=== PATIENT | male | born 1975 | race Caucasian/White ===

== ENCOUNTER → 2017-10-04 09:52 | Outpatient (CLI) | payer MEDICAID | END | disposition home or self-care (01) | LOC: D.CT 09:30 | DX: R10.9 Unspecified abdominal pain (principal); K92.1 Melena; R19.7 Diarrhea, unspecified; K59.00 Constipation, unspecified ==

== ENCOUNTER 2018-01-04 06:15 | Day surgery (SDC) | payer MEDICAID ==
[~2018-01-04] VITALS: Ht 190.5 cm; Wt 102.1 kg
--- NOTE | ~2018-01-04 | OP ---
PATIENT NAME: PHYLLIS ROY MEDICAL RECORD: [id number] :73 LOCATION:D.OPS ADMISSION DATE: SURGEON: FELICITA RDZ MD DATE OF OPERATION: 01/04/2018 PREOPERATIVE DIAGNOSIS: Bilateral inguinal hernias with a portion of the bladder which appears to be contained within the right inguinal hernia sac. POSTOPERATIVE DIAGNOSES: 1. Bilateral inguinal hernias with a portion of the bladder which appears to be contained within the right inguinal hernia sac. 2. Bilateral cord lipomas. SURGEON: Felicita Rdz MD TRIAGE ASSISTANT: None. BLOOD LOSS: Minimal. ANESTHESIA: General. COMPLICATIONS: None. Dr. Medina performed cystoscopy as well as dilation of the urethral stricture and placement of the Ladd catheter prior to the procedure. DESCRIPTION OF PROCEDURE: The abdomen and genitals were sterilely prepped and draped. A transverse incision was accomplished in the right groin. Sharp dissection was carried down through skin and subcutaneous tissue as well as Orin fascia. The external oblique aponeurosis was then cleaned of overlying connective tissue. The external oblique aponeurosis was then incised along the direction of its fibers. I bluntly dissected down through the internal oblique and transversus abdominis muscle layers. A preperitoneal pocket was fashioned bluntly. Once I was satisfied with the preperitoneal pocket, I reduced indirect hernia in its entirety. There was no damage to the bladder during this procedure. I cut 2 ovals out of a polypropylene mesh. I noted the cord lipoma. I excised the vascular pedicle to the cord lipoma and then excised the cord lipoma distal to this. After cutting out 2 ovals of polypropylene mesh they were sutured together one on top of the other with a running #1 Surgidac. The mesh was placed in the preperitoneal space. Once I was satisfied with placement of the mesh, I allowed the internal oblique and transversus abdominis muscle layers to come together and sutured these 2 structures together with multiple interrupted horizontal mattress 0 Surgidacs. The external oblique aponeurosis was closed with running #1 Vicryls. Orin fascia was approximated with interrupted 3-0 Vicryl. The subdermis was approximated with interrupted 3-0 Vicryls. The skin was approximated with a running intracuticular 4-0 Vicryl. Benzoin and Steri-Strips were applied. Attention was then turned to the left side. In the left groin, a transverse incision was accomplished. Sharp dissection was carried down through skin and OPERATIVE REPORT [id number] PHYLLIS ROY subcutaneous tissue as well as Orin fascia. The external oblique aponeurosis was then opened along the direction of its fibers. I bluntly dissected down through the internal oblique and transversus abdominis muscle layers. A preperitoneal pocket was fashioned bluntly. A cord lipoma was identified. The vascular pedicle to the cord lipoma was excised. I then removed the cord lipoma distal to this. Once I was satisfied with the preperitoneal dissection and reduction of an indirect hernia, I cut 2 ovals out of a polypropylene mesh. The 2 ovals were sutured on top of each other and kept together with a running #1 Surgidac. The mesh was then placed in the preperitoneal space. Once I was satisfied with placement of the mesh, I brought the internal oblique and transversus abdominis muscle layers together with multiple interrupted horizontal mattress 0 Surgidacs incorporating a portion of this mesh with one of the sutures. The external oblique aponeurosis was closed with running #1 Vicryls. The Orin fascia was approximated with interrupted 3-0 Vicryls. The subdermis was approximated with interrupted 3-0 Vicryl. The skin was approximated with a running intracuticular 4-0 Vicryl. Benzoin and Steri-Strips were applied. The patient was then extubated and conveyed to post-anesthesia care unit where he was in stable condition. TRANSINT:[id number] Voice Confirmation ID: [id number] DOCUMENT ID: [id number] FELICITA RDZ MD at 1747 CC: FELICITA MEDINA MD and DIANA VARNER MD [id number] DICTATION DATE: 01/04/18 1218 [employer] STOCK CLERK: 01/04/18 1259 [facility] 01/04/18 [id number] [place] [address]
--- NOTE | ~2018-01-04 | OP ---
PATIENT NAME: PHYLLIS ROY MEDICAL RECORD: [id number] :73 LOCATION:D.LIN ADMISSION DATE: SURGEON: FELICITA MEDINA MD DATE OF OPERATION: 01/04/2018 SURGEON: Felicita Medina MD ANESTHESIA: General anesthesia by [facility] CRNA PREOPERATIVE DIAGNOSIS: Urethral stricture. PROCEDURES: Urethral dilation to 30-Lithuanian, cystoscopy. FINDINGS: Urethral stricture at the fossa navicularis. BLOOD LOSS: None. CLINICAL HISTORY: This is a 42-year-old male with bilateral inguinal hernias which Dr. Felicita Rivera will be repairing today. He also has a history of urethral stricture. This is symptomatic and he is having spraying when voiding. Under the same anesthesia, he wished to have the urethral stricture treated. Also, on CT scan, he seemed to have part of his bladder going down into the right inguinal hernia. Dr. Rivera asked me to be available in case we had to dissect the bladder out of the hernia sac. I will be starting first with the urethral stricture incision and insertion of a Ladd catheter. DESCRIPTION OF PROCEDURE: The patient was given IV antibiotics. He was placed in the dorsal lithotomy position after having been given general anesthetic. He was prepped and draped. I tried to introduce the optic urethrotome, but the urethral fossa navicularis was so tight that the scope could not pass. Sounds were used to dilate the fossa navicularis from 18-Lithuanian to 30-Lithuanian. The scope was thereafter able to enter without any resistance. The rest of the urethra does not show any signs of stricture at all. Prostate is nonobstructive. Within the bladder, there are single ureteral orifices. No bladder tumors were seen. A Sensor wire was placed into the bladder through the optic urethrotome. The scope was then removed, leaving the wire in place. Over the wire, a 16-Lithuanian mille lacs tip Ladd catheter was inserted into the bladder. Once the catheter was fully in the bladder, the balloon was inflated with 10 cc of sterile water. Wire was then removed entirely. The Ladd catheter was put to bag drainage. Dr. Rivera will be proceeding with his bilateral inguinal hernia repair. TRANSINT:[id number] Voice Confirmation ID: [id number] DOCUMENT ID: [id number] FELICITA MEDINA MD at 0903 CC: [id number] DICTATION DATE: 01/04/18 1006 SILK OPENER: 01/04/18 1229 [facility] [place] 01/04/18 [place] [address] [id number] [place] [id number]
[~2018-01-04 06:15] MED LIST: ULTRAM50 MG PO
[2018-01-04 07:28] VITALS: BP 106/64; Ht 190.5 cm; Wt 102.1 kg
== END 2018-01-04 14:20 | disposition home or self-care (01) ==
LOC: D.OPS 06:15 → D.PAN 08:00 → D.OPS 09:00
DX: K40.20 Bilateral inguinal hernia, without obstruction or gangrene, not specified as recurrent (principal); D17.6 Benign lipomatous neoplasm of spermatic cord; N35.9 Urethral stricture, unspecified; Z01.812 Encounter for preprocedural laboratory examination

== ENCOUNTER 2018-07-28 06:10 | Day surgery (SDC) | payer BC ==
[~2018-07-28] VITALS: Ht 190.5 cm; Wt 102.5 kg
[2018-07-28 06:25] VITALS: BP 135/82; Ht 190.5 cm; Wt 102.5 kg
--- NOTE | 2018-07-28 11:00 | NUR ---
REC'D FROM RR. FAMILY AT BEDSIDE. DRESSING TO RIGHT GROIN CDI. APPLE JUICE AND ICE WATER BROUGHT TO PT ALONG WITH FL TRAY.
--- NOTE | 2018-07-28 11:30 | NUR ---
EXTRA SOUP BROUGHT TO PT. FAMILY AT BEDSIDE. DRESSING CDI.
--- NOTE | 2018-07-28 11:51 | NUR ---
NIXON CATHETER REMOVED IN OR BY DR RDZ AT END OF CASE
--- NOTE | 2018-07-28 12:00 | NUR ---
TOLERATED FL DIET. STILL NO URGE TO VOID. IV FLUIDS INFUSING PER RIGHT PIV. FAMILY AT BEDSIDE.
--- NOTE | 2018-07-28 13:30 | NUR ---
UP TO BATHROOM. NO SUCCESS WITH VOIDING. BACK TO BED. APPLE HUICE AND CRANBERRY JUICE BROUGHT TO PT. FAMILY AT BEDSIDE.
--- NOTE | 2018-07-28 14:05 | NUR ---
UP TO BATHROOM. VOIDED. IV DC'D WITH CATHETER INTACT.
--- NOTE | 2018-07-28 14:25 | NUR ---
WRITTEN AND VERBAL DC INST GIVEN TO PT ALONG WITH RX. VERBALIZED UNDERSTANDING.
--- NOTE | 2018-07-28 14:50 | NUR ---
DC'D HOME WITH FAMILY VIA PRIVATE VEHICLE. TAKEN TO VEHICLE VIA WC. STABLE AT TIME OF DC.
--- NOTE | 2018-07-28 16:21 | OP ---
PATIENT NAME: PHYLLIS ROY MEDICAL RECORD: [id number] :73 [facility] ADMISSION DATE: SURGEON: FELICITA RDZ MD DATE OF OPERATION: 07/28/2018 PREOPERATIVE DIAGNOSIS: Recurrent right inguinal hernia. POSTOPERATIVE DIAGNOSIS: Recurrent right inguinal hernia. PROCEDURE: Open recurrent right inguinal hernia repair utilizing a plug and patch mesh. SURGEON: Felicita Rdz MD BIOLOGY TEACHER: None. BLOOD LOSS: Minimal. ANESTHESIA: General. COMPLICATIONS: None. The risks, possible complications, and alternatives to the procedure were explained to the patient. He elects to proceed. The discussion specifically included, but was not limited to, bleeding requiring emergency reoperation, infection, recurrent herniation, chronic pain. OPERATIVE COURSE: The patient was conveyed to the operating room electively on 07/28/2018. General anesthesia was induced by the anesthesia staff. The lower abdomen, groin, and testicles were sterilely prepped and draped. An incision was accomplished in the groin. Sharp dissection was carried down through skin and subcutaneous tissue as well as Orin fascia. The cord structures were mobilized. I encountered a hernia sac. It was reduced in its entirety. There was a large lipoma as well. It was reduced in its entirety as well. I was able to reduce ease back into the retroperitoneum. Doppler signal in the cord revealed arterial Doppler flow. A plug was placed in the preperitoneal space. I then closed the external oblique aponeurosis around the cord with 0 Surgidacs. I placed a mesh that I had cut at its end to produce 2 tails. The 2 tails were wrapped around the cord structures and the 2 tails were sutured together with interrupted 0 Surgidacs. I then sutured the mesh down to the underlying external oblique aponeurosis with 0 Surgidacs. Orin fascia was approximated with interrupted 3-0 Vicryls. The subdermis was approximated with interrupted 3-0 Vicryls. Skin was approximated with a running intracuticular 3-0 Vicryl. A sterile dressing was applied. The patient was then extubated and conveyed to post-anesthesia care unit, where he was in stable condition. TRANSINT:[id number] Voice Confirmation ID: [id number] DOCUMENT ID: [id number] OPERATIVE REPORT [id number] ROYPHYLLIS Turner FELICITA RDZ MD at 1621 CC: DIANA VARNER MD [id number] DICTATION DATE: 07/28/18 1003 FLOW MANAGER: 07/28/18 1052 [facility] [place] 07/28/18 [id number] [place] [address]
== END 2018-07-28 14:50 | disposition home or self-care (01) ==
LOC: D.OPS 06:10 → D.PAN 08:00 → D.OPS 14:50
DX: K40.91 Unilateral inguinal hernia, without obstruction or gangrene, recurrent (principal); Z01.812 Encounter for preprocedural laboratory examination

== ENCOUNTER → 2019-02-05 10:48 | Outpatient (CLI) | payer BC ==
[2018-07-28 06:25] VITALS: BMI 28.3
== END | disposition home or self-care (01) ==
LOC: D.NM 02-01 11:30
PROVIDERS: ATTEND Internal Medicine Gastroenterology
DX: R10.9 Unspecified abdominal pain (principal)

== ENCOUNTER → 2020-02-13 09:59 | Outpatient (CLI) | payer MEDICAID ==
[2018-07-28 06:25] VITALS: BMI 28.3
[2020-02-13 11:03] LABS: CALC OSMOLALITY 282 mosm/kg (275-300); CALCIUM 9.1 mg/dL (8.5-10.1); CARBON DIOXIDE 30.4 mmol/L (21.0-32.0); CHLORIDE - SERUM 104 mmol/L (98-107); CREATININE - SERUM 1.1 mg/dL (0.6-1.3); GLUCOSE 94 mg/dL (74-106); POTASSIUM - SERUM 4.1 mmol/L (3.5-5.1); SODIUM 141 mmol/L (136-145); THYROID STIMULATING HORMONE 0.74 uIU/mL (0.36-3.74); UREA NITROGEN 17 mg/dL (7-18); eGFR NON AFRICAN AMERICAN 76 mL/min (90-120)
== END | disposition home or self-care (01) ==
LOC: D.LAB 09:59
PROVIDERS: ATTEND Internal Medicine Gastroenterology
DX: K31.84 Gastroparesis (principal); R11.0 Nausea

== ENCOUNTER → 2020-10-15 08:31 | Outpatient (CLI) | payer MEDICAID ==
[2018-07-28 06:25] VITALS: BMI 28.3
== END | disposition home or self-care (01) ==
LOC: D.US 08:30
PROVIDERS: ATTEND Internal Medicine Gastroenterology
DX: K31.84 Gastroparesis (principal); R10.84 Generalized abdominal pain

== ENCOUNTER → 2020-12-26 10:09 | Outpatient (CLI) | payer BC ==
[2018-07-28 06:25] VITALS: BMI 28.3
== END | disposition home or self-care (01) ==
LOC: D.CT 12-23 10:30
PROVIDERS: ATTEND Internal Medicine Gastroenterology
DX: R19.7 Diarrhea, unspecified (principal); R10.84 Generalized abdominal pain; K31.84 Gastroparesis; R11.0 Nausea; R19.4 Change in bowel habit